=== PATIENT | female | born 1975 | race Caucasian/White ===

== ENCOUNTER 2018-02-25 06:14 | Emergency (ER) | payer SELFPAY ==
[~2018-02-25] VITALS: Ht 162.6 cm; Wt 64.9 kg
== END 2018-02-25 06:57 | disposition home or self-care (01) ==
LOC: ED 06:14
DX: F15.10 Other stimulant abuse, uncomplicated (principal); J45.909 Unspecified asthma, uncomplicated; F43.10 Post-traumatic stress disorder, unspecified; F17.200 Nicotine dependence, unspecified, uncomplicated; Z88.1 Allergy status to other antibiotic agents; Z88.8 Allergy status to other drugs, medicaments and biological substances; Z88.5 Allergy status to narcotic agent
CPT/HCPCS: 99283

== ENCOUNTER 2018-03-07 21:20 | Emergency (ER) | payer SELFPAY | END 2018-03-07 21:30 | disposition left against medical advice (07) | LOC: ED 21:20 | DX: Z53.21 Procedure and treatment not carried out due to patient leaving prior to being seen by health care provider (principal) ==

== ENCOUNTER 2018-03-31 17:49 | Emergency (ER) | payer SELFPAY ==
[~2018-03-31] VITALS: Ht 162.6 cm; Wt 55.8 kg
--- OUTSIDE RECORDS SUMMARY | 2018-03-31 17:54 | XMS ---
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 Details: LWBS CRITERIA MET - Group Notification - [facility] - 2 Visits in 30 Days CARE PROVIDERS There are no care providers on record at this time. [facility] has no Care Guidelines for this patient. Care History Medical/Surgical 02/26/2018 [facility] - IF PATIENT IS SEEN IN THE ED DUE TO DRUG USE. PLEASE REFER PATIENT TO [facility] A \T\amp; D SERVICES AND REQUEST TO SPEAK WITH ANÍBAL. - IF PATIENT IS WILLING TO ACCEPT HELP/TREATMENT IN REGARDS TO DRUG USAGE PLEASE CONTACT ANÍBAL @ [phone]. - USE EXTREME CAUTION IN GIVING NARCOTICS TO THIS PATIENT. - Avoid Discharge Narcotic prescriptions if at all possible. Please use clinical judgement. E.D. VISIT COUNT (12 MO.) 4 [facility]. TOTAL 4 NOTE: Visits indicate total known visits. ED/UCC VISIT TRACKING (12 MO.) 03/31/2018 17:50 [facility] TYPE: Emergency COMPLAINT: - INTOXICATION 03/07/2018 21:20 [facility] [place] TYPE: Emergency COMPLAINT: - FALL DIAGNOSES: - Procedure and treatment not carried out due to patient leaving prior to being seen by health care provider 02/25/2018 06:16 [facility] [place] TYPE: Emergency COMPLAINT: - DRUG USE DIAGNOSES: - Unspecified asthma, uncomplicated - Allergy status to other antibiotic agents status - Nicotine dependence, unspecified, uncomplicated - Other stimulant abuse, uncomplicated - Allergy status to other drugs, medicaments and biological substances status - Allergy status to narcotic agent status - Post-traumatic stress disorder, unspecified 02/17/2018 18:[address] [facility] [place] TYPE: Emergency COMPLAINT: - ALTERED MENTAL STATUS DIAGNOSES: - Altered mental status, unspecified - Cannabis abuse, uncomplicated - Other stimulant abuse, uncomplicated - Allergy status to narcotic agent status - Personal history of nicotine dependence - Allergy status to other drugs, medicaments and biological substances status - Allergy status to penicillin INPATIENT VISIT TRACKING (12 MO.) No inpatient visits to display in this time frame [id number]
[2018-03-31] MEDS ORDERED: KEFLEX500 MG PO (19:00)
== END 2018-03-31 19:11 | disposition home or self-care (01) ==
LOC: ED 17:49
DX: N39.0 Urinary tract infection, site not specified (principal); F17.200 Nicotine dependence, unspecified, uncomplicated; Z88.0 Allergy status to penicillin; Z88.5 Allergy status to narcotic agent; Z88.8 Allergy status to other drugs, medicaments and biological substances
CPT/HCPCS: 80053; 81001; 85025; 99284; G0480

== ENCOUNTER 2018-04-10 01:50 | Emergency (ER) | payer MEDICARE, OTHER ==
[~2018-04-10] VITALS: Ht 162.6 cm; Wt 55.8 kg
[~2018-04-10 01:50] MED LIST: KEFLEX500 MG PO
--- OUTSIDE RECORDS SUMMARY | 2018-04-10 01:54 | XMS ---
PreManage Notification: LUDMILA BURKETT Security Infant Babysitter Events 1 event(s) in the past 18 months Most recent security events: Elopement at [facility] 03/07/2018 21:20 - Patient eloped before treatment completed. Details: LWBS CRITERIA MET - Group Notification - [facility] - 2 Visits in 30 Days CARE PROVIDERS There are no care providers on record at this time. [facility] has no Care Guidelines for this patient. Care History Medical/Surgical 02/26/2018 [facility] - IF PATIENT IS SEEN IN THE ED DUE TO DRUG USE. PLEASE REFER PATIENT TO [facility] A \T\amp; D SERVICES AND REQUEST TO SPEAK WITH ANÍBAL. - IF PATIENT IS WILLING TO ACCEPT HELP/TREATMENT IN REGARDS TO DRUG USAGE PLEASE CONTACT ANÍBAL @ [phone]. - USE EXTREME CAUTION IN GIVING NARCOTICS TO THIS PATIENT. - Avoid Discharge Narcotic prescriptions if at all possible. Please use clinical judgement. E.D. VISIT COUNT (12 MO.) 5 [facility]. TOTAL 5 NOTE: Visits indicate total known visits. ED/UCC VISIT TRACKING (12 MO.) 04/10/2018 01:50 [facility] TYPE: Emergency COMPLAINT: - MEDICAL CLEARANCE 03/31/2018 17:50 [facility] TYPE: Emergency COMPLAINT: - INTOXICATION DIAGNOSES: - Allergy status to penicillin - Allergy status to narcotic agent status - Allergy status to other drugs, medicaments and biological substances status - Nicotine dependence, unspecified, uncomplicated - Visual hallucinations - Urinary tract infection, site not specified 03/07/2018 21:20 [facility] [place] TYPE: Emergency [...] - Post-traumatic stress disorder, unspecified 02/17/2018 18:34 [facility] TYPE: Emergency COMPLAINT: - ALTERED MENTAL [...] visits to display in this time frame [id number]
== END 2018-04-10 02:54 | disposition home or self-care (01) ==
LOC: ED 01:50
DX: F15.129 Other stimulant abuse with intoxication, unspecified (principal); F17.200 Nicotine dependence, unspecified, uncomplicated; Z88.0 Allergy status to penicillin; Z88.5 Allergy status to narcotic agent; Z88.8 Allergy status to other drugs, medicaments and biological substances
CPT/HCPCS: 99284

== ENCOUNTER 2018-07-19 17:29 | Emergency (ER) | payer MEDICARE ==
[~2018-07-19] VITALS: Ht 162.6 cm; Wt 64.4 kg
[~2018-07-19 17:29] MED LIST changes: +CITALOPRAM HBR40 MG PO; +GABAPENTIN300 MG PO; +MACROBID 100 M100 MG PO; +MINIPRESS2 MG PO; +OLANZAPINE10 MG PO; +REMERON15 MG PO; +VENTOLIN HFA18 GM INH
--- OUTSIDE RECORDS SUMMARY | 2018-07-19 17:34 | XMS ---
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 03/07/2018 21:20 - Patient eloped before treatment completed. Details: LWBS CRITERIA MET - Group Notification - 6 ED Visits in 6 Months - [facility] - Has Care Guidelines - [facility] - 2 Visits in 30 Days CARE PROVIDERS There are no care providers on record at this time. Guidelines Source: [facility] Guidelines Date: 07/08/2018 Care Recommendation: Ms. 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 Burkett has been disruptive in ED settings in the past.\T\nbsp; If seen in ED please contact [facility] crisis line [phone].\T\nbsp;\T\nbsp; Care History Medical/Surgical 02/26/2018 [facility] - PATIENT HAS A LONG HISTORY OF MENTAL HEALTH DISORDERS- [employer] HAS BEEN INVOLVED WITH PATIENT. - IF PATIENT IS SEEN IN THE ED DUE TO DRUG USE. PLEASE REFER PATIENT TO [facility] A \T\amp; D SERVICES AND REQUEST TO SPEAK WITH ANÍBAL. - IF PATIENT IS WILLING TO ACCEPT HELP/TREATMENT IN REGARDS TO DRUG USAGE PLEASE CONTACT ANÍBAL @ [phone]. - USE EXTREME CAUTION IN GIVING NARCOTICS TO THIS PATIENT. - Avoid Discharge Narcotic prescriptions if at all possible. Please use clinical judgement. E.D. VISIT COUNT (12 MO.) 11 [facility] TOTAL 11 NOTE: Visits indicate total known visits. ED/UCC VISIT TRACKING (12 MO.) 07/19/2018 17:[address] 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 - Post-traumatic stress disorder, unspecified - Allergy status to penicillin - Other specified soft tissue disorders - Allergy status to narcotic agent status - Nicotine dependence, unspecified, uncomplicated 07/07/2018 09:11 [facility] [place] TYPE: Emergency COMPLAINT: - SKIN PROBLEM,L SHOULDER PAIN DIAGNOSES: - Other terminal system operator (current) drug therapy - Allergy status to narcotic agent status - Other stimulant abuse, uncomplicated - Exposure to other specified factors, initial encounter - Allergy status to penicillin - Delusional disorders - Contusion of left knee, initial encounter - Nicotine dependence, unspecified, uncomplicated - Allergy status to other drugs, medicaments and biological substances status - Pain in left knee 06/12/2018 08:25 [facility] TYPE: Emergency COMPLAINT: - MEDICAL CLEARANCE DIAGNOSES: - Allergy status to narcotic agent status - Allergy status to penicillin - Nicotine dependence, unspecified, uncomplicated - Allergy status to other drugs, medicaments and biological substances status - Other terminal system operator (current) drug therapy - Allergy status to other antibiotic agents status - Suicidal ideations 05/11/2018 15:48 [facility] TYPE: Emergency COMPLAINT: - MEDICAL CLEARANCE DIAGNOSES: - Allergy status to other antibiotic agents status - Nicotine dependence, unspecified, uncomplicated - Post-traumatic stress disorder, unspecified - Unspecified asthma, uncomplicated - Allergy status to narcotic agent status - Allergy status to other drugs, medicaments and biological substances status - Other residential (current) drug therapy - Bronchitis, not specified as acute or chronic 04/19/2018 17:57 [facility] [place] TYPE: Emergency COMPLAINT: - UTI DIAGNOSES: - Allergy status to penicillin - Unspecified asthma, uncomplicated - Nicotine dependence, unspecified, uncomplicated - Allergy status to narcotic agent status - Allergy status to other drugs, medicaments and biological substances status - Post-traumatic stress disorder, unspecified - Other terminal system operator (current) drug therapy - Urinary tract infection, site not specified - Dysuria 04/10/2018 01:50 [facility] [place] TYPE: Emergency COMPLAINT: - MEDICAL CLEARANCE DIAGNOSES: - Allergy status to narcotic agent status - Allergy status to other drugs, medicaments and biological substances status - Allergy status to penicillin - Nicotine dependence, unspecified, uncomplicated - Other stimulant abuse with intoxication, unspecified 03/31/2018 17:50 [facility] [place] TYPE: Emergency [...] visits to display in this time frame [id number]
== END 2018-07-19 18:39 | disposition home or self-care (01) ==
LOC: ED 17:29
DX: M25.562 Pain in left knee (principal); W19.XXXA Unspecified fall, initial encounter